=== PATIENT | female | born 1975 | race Caucasian/White ===

== ENCOUNTER 2018-11-03 08:59 | Outpatient (REF) | payer OTHER, SELFPAY ==
--- NOTE | 2018-11-03 09:00 | PAPFT_PTH ---
PATIENT: Cheyanne Martin LOC: [facility] U#:[id number] AGE/SX: 43/F ROOM: RE11/03/[address]: JABARI Xavier : 1975 BED: DIS: 11/03/2018 SPEC #: [id number] RECD: 11/03/18 11:30 STATUS: MECCA DANG #: [id number] JABARI: 11/03/18 09:[address]: Elda Gray DEPT: [facility] Cytology RECD BY: Cele Rebolledo Tissues: 1 - CX/ENDOCX FOR PAP SMEARS Procedures: PAP THIN PREP/UVM Screening HPV DNA PROBE Comments: [id number]
== END 2018-11-03 09:19 ==
LOC: LBN 08:59
PROVIDERS: PCP Family Medicine; Visit Provider Nurse Practitioner Family
DX: Z12.4 Encounter for screening for malignant neoplasm of cervix (principal); Z11.51 Encounter for screening for human papillomavirus (HPV)
CPT/HCPCS: 88142; 87624

== ENCOUNTER 2018-11-14 02:24 | Outpatient (CLI) | payer OTHER, SELFPAY ==
--- NOTE | 2018-11-14 15:30 | DI.MAMMO_ITS ---
SYMPTOM/DIAGNOSIS: SCREENING, Z12.31 MAMMOGRAMS: Mammograms were interpreted according to the usual protocol including computer analysis with CAD system, tomosynthesis and C view imaging. This is a baseline examination. The breasts are composed of heterogeneously dense fibroglandular tissue, breast density, Category C. No suspicious masses or suspicious microcalcifications are seen. IMPRESSION: Category 1, negative mammogram. Yearly screening mammography is recommended. [facility] ASSESSMENT OF FINDINGS: Negative. Category 1. Patient will receive a letter notifying them of these results. Bi-RADS category C. The breasts are heterogeneously dense, which may obscure small masses.
== END 2018-11-14 02:44 ==
PROVIDERS: PCP Family Medicine; Visit Provider Nurse Practitioner Family
DX: Z12.31 Encounter for screening mammogram for malignant neoplasm of breast (principal)
CPT/HCPCS: 77063; 77067

== ENCOUNTER 2019-10-05 00:48 | Outpatient (CLI) | payer OTHER, SELFPAY ==
--- NOTE | 2019-10-05 06:30 | DI.US_ITS ---
EXAM: US ABDOMEN CLINICAL HISTORY: pulsitile epigastric mass,R19.06 TECHNIQUE: Ultrasound abdomen performed using standard protocol. COMPARISON: No exams were available for comparison FINDINGS: ABDOMINAL AORTA AND IVC: Visualized portions normal caliber. PANCREAS: Normal where visualized. LIVER: Normal. Hepatopedal flow in the Portal Vein. GALLBLADDER: No evidence of cholelithiasis. No evidence of wall thickening. No pericholecystic fluid identified. BILIARY SYSTEM: Common bile duct measures 3.3 mm. No intrahepatic biliary ductal dilation. OTT'S SIGN: Negative. KIDNEYS: Kidneys are symmetric in size. No evidence of renal calculi. No evidence of hydronephrosis. No renal mass or cyst identified. SPLEEN: Not enlarged. ASCITES: None seen. IMPRESSION: Normal sonographic appearance of the upper abdomen. DATA REPOSITORY:
== END 2019-10-05 01:08 ==
PROVIDERS: PCP Family Medicine; Visit Provider Nurse Practitioner Family
DX: R19.06 Epigastric swelling, mass or lump (principal)
CPT/HCPCS: 76700

== ENCOUNTER 2020-08-23 22:12 | Outpatient (CLI) | payer OTHER, SELFPAY ==
--- NOTE | 2020-08-23 14:07 | DI.RAD_ITS ---
Exam(s) XR PELVIS W OBLIQUES 3V EXAM: XR PELVIS W OBLIQUES 3V CLINICAL HISTORY: sudden onset back pain with onset of menses, M54.9, h/o dysmenorrhea,Z87.42 TECHNIQUE: COMPARISON: No exams were available for comparison FINDINGS: Three views of the pelvis were obtained. Note is made of an IUD in pelvic midline. SI joints show m inimal degenerative spurring. There is a transitional lumbosacral vertebra. Cartilaginous joint spa amber hips may be slightly thinned. No bony abnormality seen involving the hips or pelvis. IMPRESSION: RADIATION DOSE DELIVERED: Total DLP
== END 2020-08-23 22:32 ==
PROVIDERS: PCP Family Medicine; Visit Provider Obstetrics & Gynecology Gynecology
DX: M54.5 Low back pain (principal); Z97.5 Presence of (intrauterine) contraceptive device; M53.3 Sacrococcygeal disorders, not elsewhere classified; N94.6 Dysmenorrhea, unspecified
CPT/HCPCS: 72190

== ENCOUNTER 2020-09-14 01:57 | Outpatient (CLI) | payer OTHER, SELFPAY ==
--- NOTE | 2020-09-14 12:46 | DI.MAMMO_ITS ---
Exam(s) MAMMO SCREENING EXAM: MAMMO SCREENING CLINICAL HISTORY: screening TECHNIQUE: Bilateral full field digital CC and MLO mammographic images were obtained with 3D tomosyn thesis and utilizing computer aided detection (CAD). COMPARISON: Available for comparison. FINDINGS: Masses/Architectural Distortion: None seen. Microcalcifications: No suspicious pleomorphic-type are seen. Skin Thickening/Nipple Retraction: None. IMPRESSION: 1. No significant interval change with no specific features of malignancy noted. 2. Unless there is more urgent need, screening mammography is recommended, as per [employer] guidelines. BI-RADS Category 1 - Negative Breast Density - Category C - Heterogeneously dense Breast density category C or D implies that the patient has dense breast tissue. Dense breast tissue is very common and is not abnormal but dense breast tissue can make it harder to find cancer on a ma mmogram. Also, dense breast tissue may increase their breast cancer risk. This information about the result of the mammogram report was provided to the patient to raise their awareness. Use this report when you speak with the patient about their risks for breast cancer, which includes their family hist ory. At that time, you may recommend for more screening tests (Ultrasound or MRI) as they might be us eful based on their risk. A negative radiographic report should not delay biopsy if a dominant or clinically suspicious mass is present. Up to ten percent of cancers are not identified on mammography. A negative report may reinforce clinical impression. Adenosis and dense breasts may obscure an underlying neoplasm. False positive reports average 6 to 10%. Patient will receive a letter notifying them of these results.
== END 2020-09-14 02:17 ==
PROVIDERS: PCP Family Medicine; Visit Provider Nurse Practitioner Family
DX: Z12.31 Encounter for screening mammogram for malignant neoplasm of breast (principal)
CPT/HCPCS: 77063; 77067

== ENCOUNTER 2021-04-13 03:12 | Outpatient (CLI) | payer OTHER, SELFPAY ==
[2021-04-13 08:23] LABS: HCT 40.6 % (36.0-46.0); HGB 13.1 g/dL (11.2-15.7); MCH 30.4 pg (27.0-33.0); MCHC 32.3 % (32.0-36.0); MCV 94.2 fL (80-95); MPV 8.8 fL (8.0-11.0); Platelet Count 284 10^3/uL (130-400); RBC 4.31 10^6/uL (3.93-5.22); RDW 11.9 % (11.7-14.6); RDW-SD 41.8 fL; WBC 5.43 10^3/uL (4.4-10.8)
[2021-04-13 10:28] LABS: ALT 23 U/L (14-59); AST 16 U/L (15-37); Albumin 3.8 g/dL (3.4-5.0); Alkaline Phosphatase 56 U/L (46-116); Anion Gap 4.1 mmol/L (3-11); BUN 15 mg/dL (7-18); Bilirubin, Total 0.6 mg/dL (0.2-1.0); CO2 30.9 mmol/L (21.0-32.0); CREATININE 0.8 mg/dL (0.55-1.02); Calcium 8.8 mg/dL (8.5-10.1); Calculated LDL 103 mg/dL (<100); Chloride 104 mmol/L (98-107); Cholesterol 176 mg/dL (<200); Glucose 91 mg/dL (74-106); HDL Cholesterol 66 mg/dL (40-60); Potassium 4.5 mmol/L (3.5-5.1); Sodium 139 mmol/L (136-145); Total Protein 7.4 g/dL (6.4-8.2); Triglyceride 39 mg/dL (<150)
[2021-04-13 18:08] LABS: Rheumatoid Factor <8.6 IU/mL (<12.0)
[2021-04-14 15:48] LABS: ANA Interpretation Positive (Negative); ANA Titer Pattern 1:160 Homogeneous
== END 2021-04-13 03:13 | disposition home or self-care (01) ==
LOC: LBO 03:12
PROVIDERS: PCP Nurse Practitioner; Visit Provider Nurse Practitioner
DX: I73.00 Raynaud's syndrome without gangrene (principal); R53.83 Other fatigue; Z13.220 Encounter for screening for lipoid disorders
CPT/HCPCS: 36415; 80053; 80061; 85027; 86038; 86431

== ENCOUNTER 2021-09-07 08:56 | Outpatient (REF) | payer OTHER, SELFPAY ==
--- NOTE | 2021-09-07 08:30 | PAPFT_PTH ---
PATIENT: Cheyanne Martin LOC: [facility] U#:[id number] AGE/SX: 46/F ROOM: RE09/07/[address]: JABARI Xavier : 1975 BED: DIS: 09/07/2021 SPEC #: [id number] RECD: 09/07/21 12:48 STATUS: MECCA REQ #: [id number] JABARI: 09/07/21 08:[address]: Elda Gray DEPT: [facility] Cytology RECD BY: Es Swan ENTERED: 09/07/21 12:48 SP TYPE: PAPFT OT DR: Saritha Cruz APRN Tissues: 1 - CX/ENDOCX FOR PAP SMEARS Procedures: PAP THIN PREP/UVM Screening HPV DNA PROBE Comments: [id number]
== END 2021-09-07 08:57 | disposition home or self-care (01) ==
LOC: LBN 08:56
PROVIDERS: PCP Nurse Practitioner; Visit Provider Nurse Practitioner Family
DX: Z12.4 Encounter for screening for malignant neoplasm of cervix (principal); R87.610 Atypical squamous cells of undetermined significance on cytologic smear of cervix (ASC-US); Z11.51 Encounter for screening for human papillomavirus (HPV)
CPT/HCPCS: 88142; 87624

== ENCOUNTER → 2021-10-17 01:07 | Outpatient (CLI) | payer OTHER, SELFPAY ==
--- NOTE | 2021-10-17 15:45 | DI.MAMMO_ITS ---
Exam(s) MAMMO SCREENING EXAM: MAMMO SCREENING CLINICAL HISTORY: screening. TECHNIQUE: Bilateral full field digital CC and MLO mammographic images were obtained with 3D tomosyn thesis and utilizing computer aided detection (CAD). COMPARISON: Prior mammograms were reviewed, the most recent being September 2020. FINDINGS: There has been no significant change in the appearance and distribution of the fibroglandular tissue which is again noted be moderately dense, this somewhat decreasing the sensitivity of the mammogram f or finding hidden underlying lesions. Asymmetric tissue in the lateral aspect of the left breast is unchanged from prior studies. There are no new spiculated masses nor malignant appearing microcalcification groups. There is no significant architectural distortion nor skin thickening-retraction. IMPRESSION: No radiographic evidence of malignancy. BI-RADS Category 1 - Negative Breast Density - Category C - Heterogeneously dense Breast density Category C or D implies that the patient has dense breast tissue. Dense breast tissue can make it harder to find cancer on a mammogram. Dense breast tissue is also associated with an incr eased risk of breast cancer. This information about the result of the mammogram report was provided to the patient to raise their awareness. Use this report when you speak with the patient about their risks for breast cancer, which includes their family history. At that time, you may recommend additional screening tests (Ultrasoun d or MRI) as these tests may add significant information. A negative radiographic report should not delay biopsy if a dominant or clinically suspicious mass is present. Up to ten percent of cancers are not identified on mammography. A negative report may reinforce clinical impression. Adenosis and dense breasts may obscure an underlying neoplasm. False positive reports average 6 to 10%. Patient will receive a letter notifying them of these results.
== END ==
PROVIDERS: PCP Nurse Practitioner; Visit Provider Nurse Practitioner Family
DX: Z12.31 Encounter for screening mammogram for malignant neoplasm of breast (principal)
CPT/HCPCS: 77063; 77067

== ENCOUNTER 2022-01-29 11:24 | Day surgery (SDC) | payer OTHER, SELFPAY ==
--- NOTE | 2022-01-29 01:05 | W.COLOREPORT ---
Colonoscopy Report Date of procedure: 01/29/22 Pre-op diagnosis general: Screening colonoscopy Post-op diagnosis procedure note: same Procedure: Screening colonoscopy for routine health maintenance Surgeon: Cresencio Arroyo Anesthesia Type: General:No Airway Estimated blood loss (mL): 0 Pathology: none sent Complications: None Disposition: same day Indications: Kristen is a 47-year-old woman here for her first screening colonoscopy Prep: Miralax/Dulcolax Procedure Start Time: 13:32 Procedure End Time: 13:49 Retraction Time: 14 Procedure Description: After the induction of monitored anesthetic care, and with the patient in left lateral decubitus position, I began by performing an external anorectal exam.? Perineum and skin were normal, as was the anal verge.? There was no evidence of external hemorrhoids.? Next, I performed a digital rectal exam.? I did not appreciate any abnormal findings.? Next, I advanced a colonoscope into the rectal vault.? I performed retroflexion.? I did not see signs of pathologic internal hemorrhoids.? Using insufflation, I then advanced the colonoscope beyond the rectal folds and into the sigmoid colon before advancing towards the cecum.? The quality of the prep was adequate.? The scope was noted to be in the cecum by identification of the ileocecal valve and appendiceal orifice.? I then began withdrawing the colonoscope using repeated irrigation as necessary for full evaluation of the colonic mucosa. ?Once the scope was withdrawn to the level of the rectum, great care was taken to examine portions of the rectal folds.? Finally, the scope was withdrawn and the patient was brought to the same-day surgery recovery unit as the anesthetic wore off. ?The findings and instructions were shared with the patient prior to discharge.
--- NOTE | 2022-01-29 01:05 | W.PM.DSUDISC ---
Discharge Plan Disposition Patient Disposition: HOME Condition: Good Discharge Details Reason For Visit: screening colonoscopy Attending Provider: Cresencio Arroyo Primary Care Provider: Saritha Cruz Home Meds and New Rx's Prescriptions: Continued Mirena 1 EACH intrauterine device 1 ea Intrauterine ONCE Qty: 1 0RF Label Comments: pt. reports it is in place at this time Discontinued bisacodyl [Dulcolax (bisacodyl)] 5 mg tablet,delayed release (DR/EC) 5 mg PO ONCE Qty: 4 0RF Rx Instructions: Take according to provider's instructions for colonoscopy prep. polyethylene glycol 3350 17 gram/dose powder 17 g PO ONCE Qty: 238 0RF Rx Instructions: To be taken as directed by prescriber's office for colonoscopy prep. Discharge Instructions Additional Instructions: 1. If tolerated, consume a soft, low fiber diet for 1-2 days. 2[address] Do not drive, drink alcohol, operate machinery, make critical decisions, or do activities that require coordination or balance for 24 hours. 3. Because air was put into your colon during the procedure, expelling air from your rectum (passing gas or farting) is normal. 4. You may not have a bowel movement for 1-3 days because of the colonoscopy prep. This is normal. 5. Go directly to the emergency room if you notice any of the following: Develop chills (warm to touch), or if you have a thermometer and your temperature is above 101 Difficulty breathing or difficultly swallowing Persistent vomiting Severe abdominal pain, other than gas cramps Severe chest pain Black, tarry stools Any bleeding ? exceeding one tablespoon 6. Call your physician if the site where your intravenous was started becomes red, swollen, painful, and warm to touch. 7. Your physician has reviewed your pre-procedure medications. Please continue to take those medications as previously ordered. You will be given specific information/education regarding any changes to your medications before leaving. Activity:: Activity as Tolerated Diet:: As Tolerated Discharge Orders Discharge Orders: Discharge Order (Routine); Ordered 01/29/22 Ordered By: Cresencio Arroyo DS: Diagnosis Discharge Diagnosis (1) Screening for colon cancer: Status: Acute Asessment and Plan: Normal colonoscopy, recommended next 1 in 10 years
[2022-01-29 11:47] VITALS: BP 129/81; PULSE 68; RESP 16; TEMP 37.1; O2SAT 99
[2022-01-29] MEDS: Lactated Ringers 1,000 ML 80 ML IV (12:20)
--- NOTE | 2022-01-29 12:46 | W.ANESPRE ---
General Info Date of Service Date Performed: 01/29/22 Height: 5 ft 7 in Weight: 68.946 kg Body Mass Index (BMI): 23.8 Surgical Procedure: Operation Date: 01/29/22 10:50 Proposed Procedure Side Surgeon p Colonoscopy Joselin Fernandez MD Meds Allergies and Home Medications Allergies Allergy/AdvReac Type Severity Reaction Status Date / Time No Known Drug Allergies Allergy Verified 01/26/22 15:14 Home Medication Medication Instructions Recorded levonorgestrel 20 mcg/24 hours (7 1 ea intrauterine ONCE #1 implant 04/11/17 yrs) 52 mg intrauterine device (Mirena) Current Visit Medications: Current Medications Generic Name Dose Route Start Last Admin Trade Name Freq PRN Reason Stop Dose Admin Hyoscyamine Sulfate 0.125 mg 01/29/22 01:07 Hyoscyamine 0.125 Mg Sl/Oral/Chew SL DIRECTED PRN Ringer's Solution 1,000 mls @ 80 mls/hr 01/29/22 06:00 01/29/22 12:20 IV 01/29/22 23:59 80 mls/hr INFUSION ALLIE Administration IV Miscellaneous Supplies 1 each 01/29/22 06:00 Iv Access IV 01/29/22 23:59 DIRECTED ALLIE Ondansetron HCl 4 mg 01/29/22 01:07 Ondansetron 4 Mg/2 Ml Vial IVP Q4H PRN PRN Nausea / Vomiting Sodium Chloride 0 ml 01/29/22 06:00 Normal Saline Flush 10 Ml Syr IV 01/29/22 23:59 PRN PRN Sodium Chloride 0 ml 01/29/22 06:00 Normal Saline 10 Ml Vial IJ 01/29/22 23:59 DIRECTED PRN Sterile Water 0 ml 01/29/22 06:00 Water,Injection,Sterile 10 Ml Vial IJ 01/29/22 23:59 DIRECTED PRN PFSH Active Problems Active Problems: Problem Status Onset Code Constipation K59.00 Fibroid D25.9 IUD surveillance Z30.431 Back pain M54.9 H/O dysmenorrhea Z87.42 Hip pain M25.559 Raynaud phenomenon I73.00 Screening for colon cancer Z12.11 Medical History Medical History (Updated 01/29/22 @ 11:58 by Linda Huerta) History of cardiac murmur pt. 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 reports no sedation Vaginal delivery Tobacco Smoking/Tobacco Use Status: Former Tobacco Use Alcohol Alcohol Intake: current Alcohol intake frequency: a few times a week Alcohol type: beer Substance Use Substance use: Never Substance use type: does not use Details: alcholol: t-3. 2 beers Prental History History 1 Para 1 Hx # Term Pregnancies Multiple births Hx # Pregnancies Ectopic pregnancies AB induced Hx Number of Living Children AB spontaneous Vital Signs and Lab Results Vital Signs Most Recent Vital Signs in EMR: Most Recent Vital Signs Temp Pulse Resp BP Pulse Ox 37.1 C 68 16 129/81 99 01/29/22 11:47 01/29/22 11:47 01/29/22 11:47 01/29/22 11:47 01/29/22 11:47 Lab Results Blood Type / Crossmatch: No Data to Display Complete Blood Count: No Data to Display Complete Metabolic Panel: No Data to Display Liver Function Panel: No Data to Display Coagulation Panel: No Data to Display Cardiac Panel: No Data to Display Arterial Blood Gas: No Data to Display Venous Blood Gas: No Data to Display Pancreas Panel: No Data to Display Thyroid Panel: No Data to Display Infectious Disease: No Data to Display Blood Cultures: No Data to Display Toxicology Panel: No Data to Display Panel: No Data to Display Anesthesia Assessment and Plan Anesthesia History Personal History: No History of General Anesthesia Family History: No Family History of Anesthesia Complications Exercise Tolerance Exercise Tolerance: Metabolic Equivalents>4 Cardiac & Pulmonary Exam Cardiac Exam: Normal S1/S2 Heart Sounds Pulmonary Exam: Clear Bilateral Breath Sounds Implantable Cardiac Device Does patient have a Pacemaker or an ICD?: No Airway Exam Known Difficult Airway: No Mallampati Class: 1 Mouth Opening: Normal (> 3cm) Thyromental Distance: Greater than 3 cm Neck Range of Motion: Full ROM Neck Circumference: Normal Teeth Condition: Normal Dentition ASA Classification ASA Score: ASA 2 Emergency Case?: No NPO Status NPO Status: NPO Clears >2 hours, Solids >8 hours Status Status: Not Per Patient Anesthesia Plan Resuscitation Status: Full Code Anesthesia Technique: General Anesthesia Airway Planned: Natural Airway Monitors Used: Standard Monitors
[2022-01-29 13:24] VITALS: BMI 23.8
[2022-01-29 13:57] VITALS: BP 117/70; PULSE 58; RESP 18; TEMP 36; O2SAT 98
[2022-01-29 14:19] VITALS: BP 110/76; PULSE 64; RESP 18; TEMP 36.5; O2SAT 100
--- NOTE | 2022-01-29 14:55 | W.ANESPOSTOP ---
Postoperative Evaluation Date, Time and Location Date Performed: 01/29/22 Time Performed: 14:55 Patient Location: Day Surgery Unit Vital Signs Most Recent Imported Vital Signs: Most Recent Vital Signs Temp Pulse Resp BP Pulse Ox 36.5 C 64 18 110/76 100 01/29/22 14:19 01/29/22 14:19 01/29/22 14:19 01/29/22 14:19 01/29/22 14:19 Pain Score Most Recent Pain Score: Most Recent Pain Score Pain Level 0 01/29/22 11:47 Assessment Mental Status: Awake (Alert & Oriented to Patient Baseline) Airway and Respiratory Function: Patent airway with normal (patient baseline) respiratory exam Cardiovascular Function: Hemodynamically Stable Hydration Status: Adequately Hydrated Nausea & Vomiting: No Nausea or Vomiting Pain: Pt. Denies Any Pain Peripheral Nerve Block: Patient did not receive a nerve block
== END 2022-01-29 14:26 | disposition home or self-care (01) ==
PROVIDERS: PCP Nurse Practitioner; Visit Provider Surgery
PROC: 0DJD8ZZ Inspection of Lower Intestinal Tract, Via Natural or Artificial Opening Endoscopic (ICD-10-PCS; CPT 45378; principal; 2022-01-29 10:45)
DX: Z12.11 Encounter for screening for malignant neoplasm of colon (principal)
CPT/HCPCS: 45378; 81025

== ENCOUNTER 2022-11-26 09:14 | Outpatient (REF) | payer OTHER, SELFPAY ==
--- NOTE | 2022-11-26 08:45 | PAPFT_PTH ---
PATIENT: Cheyanne Martin LOC: [facility] U#:[id number] AGE/SX: 47/F ROOM: RE11/26/[address]: Krystal Olguin NP : 1975 BED: DIS: 11/26/2022 SPEC #: [id number] RECD: 11/26/22 14:30 STATUS: MECCA RERossy #: [id number] JABARI: 11/26/22 08:[address]: Krystal Olguin NP DEPT: [facility] Cytology RECD BY: Leonie Rogers ENTERED: 11/26/22 14:32 SP TYPE: PAPFT OTHR DR: Saritha Cruz APRN Tissues: 1 - CX/ENDOCX FOR PAP SMEARS Procedures: PAP THIN PREP/UVM Screening HPV DNA PROBE Comments: [id number]
== END 2022-11-26 09:15 | disposition home or self-care (01) ==
LOC: LBN 09:14
PROVIDERS: PCP Nurse Practitioner; Visit Provider Nurse Practitioner Women's Health
DX: Z12.4 Encounter for screening for malignant neoplasm of cervix (principal); Z11.51 Encounter for screening for human papillomavirus (HPV); Z87.410 Personal history of cervical dysplasia
CPT/HCPCS: 88142; 87624

== ENCOUNTER → 2022-12-13 00:12 | Outpatient (CLI) | payer OTHER, SELFPAY ==
--- NOTE | 2022-12-13 07:30 | DI.MAMMO_ITS ---
Exam(s) MAMMO SCREENING EXAM: MAMMO SCREENING CLINICAL HISTORY: screening TECHNIQUE: Bilateral full field digital CC and MLO mammographic images were obtained with 3D tomosyn thesis and utilizing computer aided detection (CAD). COMPARISON: Available for comparison. FINDINGS: Masses/Architectural Distortion: None seen. Microcalcifications: No suspicious pleomorphic-type are seen. Skin Thickening/Nipple Retraction: None. IMPRESSION: 1. No significant interval change with no specific features of malignancy noted. 2. Unless there is more urgent need, screening mammography is recommended, as per [employer] [employer] guidelines. BI-RADS Category 1 - Negative Breast Density - Category C - Heterogeneously dense Breast density category C or D implies that the patient has dense breast tissue. Dense breast tissue is very common and is not abnormal but dense breast tissue can make it harder to find cancer on a ma mmogram. Also, dense breast tissue may increase their breast cancer risk. This information about the result of the mammogram report was provided to the patient to raise their awareness. Use this report when you speak with the patient about their risks for breast cancer, which includes their family hist ory. At that time, you may recommend for more screening tests (Ultrasound or MRI) as they might be us eful based on their risk. A negative radiographic report should not delay biopsy if a dominant or clinically suspicious mass is present. Up to ten percent of cancers are not identified on mammography. A negative report may reinforce clinical impression. Adenosis and dense breasts may obscure an underlying neoplasm. False positive reports average 6 to 10%. Patient will receive a letter notifying them of these results.
== END ==
PROVIDERS: PCP Nurse Practitioner; Visit Provider Nurse Practitioner Women's Health
DX: Z12.31 Encounter for screening mammogram for malignant neoplasm of breast (principal)
CPT/HCPCS: 77063; 77067